=== PATIENT | male | born 1980 | race Two or more races ===

== ENCOUNTER 2022-07-26 10:14 | Emergency (ER) | payer MEDICAID ==
--- NOTE | 2022-07-26 10:28 | NUR ---
CALLED IN ED WAITING ROOM. NO RESPONSE.
--- NOTE | 2022-07-26 10:38 | NUR ---
CALLED IN ED WAITING ROOM. NO RESPONSE
--- NOTE | 2022-07-26 10:59 | NUR ---
PT LEFT W/OUT BEING SEEN.
== END 2022-07-26 11:00 | disposition left against medical advice (07) ==
LOC: ER 10:23
DX: Z53.21 Procedure and treatment not carried out due to patient leaving prior to being seen by health care provider (principal)